=== PATIENT | female | born 1960 ===

== ENCOUNTER → 2021-01-30 | Outpatient (REF) ==
--- NOTE | 2021-01-30 13:13 | REPPI ---
INDICATION: DISABILITY DIAGNOSIS DETERMINATION, ARTHRITIS COMPARISON: None. TECHNIQUE: AP, lateral, bilateral oblique and sunrise views. FINDINGS: Advanced tricompartmental osteoarthritic degenerative changes are appreciated including periarticular sclerosis, subchondral cystic changes, joint space narrowing/obliteration, chondrocalcinosis and osteophytosis. No acute fracture or dislocation. No effusion. IMPRESSION: Advanced tricompartmental osteoarthritic degenerative changes. <Electronically signed by Pavan Alaniz > 01/30/21 1233
--- NOTE | 2021-01-30 13:26 | REPPI ---
INDICATION: DISABILITY DIAGNOSIS DETERMINATION, ARTHRITIS COMPARISON: None. TECHNIQUE: Internal rotation, external rotation, and Y view. FINDINGS: Cortical irregularity and spurring at the acromioclavicular joint is appreciated. Broad-based osteophyte formation involving the humeral tuberosity is suggested. The subacromial space is lower limits of normal. No obvious periarticular calcifications or loose bodies are identified. IMPRESSION: Early advanced osteoarthritic degenerative changes. <Electronically signed by Pavan Alaniz > 01/30/21 [id number]
== END ==
LOC: M PLAIMG 12:16
PROVIDERS: ATTEND Internal Medicine
DX: Z00.00 Encounter for general adult medical examination without abnormal findings (principal); M19.90 Unspecified osteoarthritis, unspecified site